=== PATIENT | female | born 1980 | race Caucasian/White ===

== ENCOUNTER 2017-09-14 08:50 | Outpatient (CLI) | payer OTHER ==
--- NOTE | 2017-09-14 10:33 | MRI ---
LEFT HIP MRI WITHOUT IV CONTRAST: History: 37-year-old female with history of left hip pain and hypomobility syndrome. Technique: Multiplanar, multisequence MRI examination of the left hip is performed. FINDINGS: There is some subtle heterogeneous altered signal in the right side of the symphysis, possibly residu al from previous osteitis pubis but without significant acute abnormal marrow signal. No evidence for avascular necrosis, hip fracture or significant abnormal stress related findings. No evidence for ac luis a muscle or tendon injury. Visualized uterus and adnexal regions demonstrate a somewhat bicornate a ppearing uterus but this is not completely imaged on this study. No evidence for hip labral tear. IMPRESSION: Subtle altered signal in the right symphysis pubis region, possibly minimal residual from prior ostei tis pubis without evidence for significant acute marrow edema. No evidence for other significant abno rmality. Note of somewhat bicornate appearing uterus, incompletely evaluated on this study. POS: [facility]
== END 2017-09-14 08:51 | disposition home or self-care (01) ==
LOC: MRI 08:50
PROVIDERS: ATTEND Internal Medicine Rheumatology
DX: M25.552 Pain in left hip (principal); M35.7 Hypermobility syndrome